=== PATIENT | female | born 2000 | race American Indian/Alaskan Native ===

== ENCOUNTER 2022-02-20 11:14 | Emergency (ER) | payer MEDICAID ==
--- NOTE | 2022-02-20 14:26 | Emergency Department Report ---
ED Female HPI - General Chief complaint: Urogenital-Female Stated complaint: VAGINAL DISCHARGE Source: patient Mode of arrival: Ambulatory Limitations: No Limitations - History of Present Illness Initial comments: 21-year-old female presents to the ED complaining of vaginal discharge x2 days. Patient states that she had was diagnosed with trichomonas on February 16 and was given Flagyl and Diflucan. She states that symptom has not resolved and she continue to have unprotected sex with the same sexual partner. Patient states painful to have sexual intercourse. Patient complain of dysuria at present time. Patient states that she has an appointment with [facility] this week but due to the vaginal discharge she decided to come to the ED. patient is alert and oriented x3. No acute distress noted. No ill appearance noted. Patient denies any fever, chills or shortness of breath. MD Complaint: vaginal discharge Onset/Timin -: Gradual Severity scale (0 -10): 5 Consistency: intermittent Improves with: none - Related Data Home Medications Medication Instructions Recorded Confirmed Last Taken Divalproex Dr [DepaKOTE DR] 500 mg PO BID 09/11/18 09/11/18 Unknown FLUoxetine HCL [Fluoxetine HCl] 20 mg PO DAILY 09/11/18 09/11/18 Unknown Norgestimate-Ethinyl Estradiol 0.25 mg PO DAILY 09/11/18 09/11/18 Unknown [Previfem Tablet] traZODone [Desyrel] 100 mg PO QHS 09/11/18 09/11/18 Unknown valACYclovir [Valtrex] 500 mg PO DAILY 09/11/18 09/11/18 Unknown Previous Rx's Medication Instructions Recorded Last Taken Type DOXYCYCLINE Hyclate [Vibramycin 100 mg PO Q12HR 10 Days #20 capsule 02/20/22 Unknown Rx CAP] Terconazole [Terazol 7 Vag Cream] 1 applicator VG QHS 5 Days #1 02/20/22 Unknown Rx applicator metroNIDAZOLE [Flagyl TAB] 500 mg PO Q12HR 7 Days #14 tab 02/20/22 Unknown Rx Allergies Allergy/AdvReac Type Severity Reaction Status Date / Time No Known Allergies Allergy Verified 09/11/18 21:57 ED Review of Systems ROS: Stated complaint: VAGINAL DISCHARGE Other details as noted in HPI Constitutional: denies: chills, fever Eyes: denies: eye pain, eye discharge, vision change ENT: denies: ear pain, throat pain Respiratory: denies: cough, shortness of breath, wheezing Cardiovascular: denies: chest pain, palpitations Endocrine: no symptoms reported Gastrointestinal: denies: abdominal pain, nausea, diarrhea Genitourinary: denies: urgency, dysuria, discharge Musculoskeletal: denies: back pain, joint swelling, arthralgia Skin: denies: rash, lesions Neurological: denies: headache, weakness, paresthesias Psychiatric: denies: anxiety, depression Hematological/Lymphatic: denies: easy bleeding, easy bruising ED Past Medical Hx - Past Medical History Previous Medical History?: Yes Hx Psychiatric Treatment: Yes (depression) Additional medical history: Herpes, Vaginal discharge - Surgical History Past Surgical History?: No - Social History Smoking Status: Never Smoker - Medications Home Medications: Home Medications Medication Instructions Recorded Confirmed Last Taken Type Divalproex Dr [DepaKOTE DR] 500 mg PO BID 09/11/18 09/11/18 Unknown History FLUoxetine HCL [Fluoxetine HCl] 20 mg PO DAILY 09/11/18 09/11/18 Unknown History Norgestimate-Ethinyl Estradiol 0.25 mg PO DAILY 09/11/18 09/11/18 Unknown History [Previfem Tablet] traZODone [Desyrel] 100 mg PO QHS 09/11/18 09/11/18 Unknown History valACYclovir [Valtrex] 500 mg PO DAILY 09/11/18 09/11/18 Unknown History DOXYCYCLINE Hyclate [Vibramycin 100 mg PO Q12HR 10 Days #20 capsule 02/20/22 Unknown Rx CAP] Terconazole [Terazol 7 Vag Cream] 1 applicator VG QHS 5 Days #1 02/20/22 Unknown Rx applicator metroNIDAZOLE [Flagyl TAB] 500 mg PO Q12HR 7 Days #14 tab 02/20/22 Unknown Rx ED Physical Exam - General Limitations: No Limitations General appearance: alert, in no apparent distress - Head Head exam: Present: atraumatic, normocephalic - Eye Eye exam: Present: normal appearance - ENT ENT exam: Present: mucous membranes moist - Neck Neck exam: Present: normal inspection - Respiratory Respiratory exam: Present: normal lung sounds bilaterally. Absent: respiratory distress - Cardiovascular Cardiovascular Exam: Present: regular rate, normal rhythm. Absent: systolic murmur, diastolic murmur, rubs, gallop - GI/Abdominal GI/Abdominal exam: Present: soft, normal bowel sounds - Speculum exam: Present: vaginal discharge Bi-manual exam: Present: normal bi-manual exam. Absent: cervical motion tendernes - Extremities Exam Extremities exam: Present: normal inspection - Back Exam Back exam: Present: normal inspection - Neurological Exam Neurological exam: Present: alert, oriented X3 - Psychiatric Psychiatric exam: Present: normal affect, normal mood - Skin Skin exam: Present: warm, dry, intact, normal color. Absent: rash ED Course Vital Signs 02/20/22 02/20/22 11:28 15:47 Temperature 98.0 F 98.7 F Pulse Rate 91 H 77 Respiratory 18 18 Rate Blood Pressure 134/67 Blood Pressure 136/80 [Right] O2 Sat by Pulse 100 99 Oximetry ED Medical Decision Making - Medical Decision Making 21-year-old female presents to the ED complaining of vaginal discharge x2 days. Patient states that she had was diagnosed with trichomonas on February 16 and was given Flagyl and Diflucan. She states that symptom has not resolved and she continue to have unprotected sex with the same sexual partner. Patient states painful to have sexual intercourse. Patient complain of dysuria at present time. Patient states that she has an appointment with [facility] this week but due to the vaginal discharge she decided to come to the ED. patient is alert and oriented x3. No acute distress noted. No ill appearance noted. Patient denies any fever, chills or shortness of breath. Physical examination patient has copious amount of white vaginal discharge on pelvic examination. Empirically treat patient for gonorrhea chlamydia. Wet prep shows trichomonas and bacterial vaginosis. Patient to keep appointment at [facility]. Rechecked the patient is resting quietly quietly and comfortable and feeling better. I discussed the results of diagnostic study, my clinical impression and the plan for further treatment with the patient. Patient agrees with plan and discharge at this present time. All question addressed. I have given the patient instruction regarding a diagnosis ,expectation ,follow- up and return precaution. I explained to the patient that emergent condition may arise and to return to the ED for new worsen and any new persisting condition. I have explained the importance of following up with the primary care physician or referral physician listed below has instructed. The patient verbalized understanding of discharge instruction. Abnormal Lab Results 02/20/22 14:11 Urine Color Yellow Urine Turbidity Clear Urine pH 6.0 Ur Specific [facility] 1.019 Urine Protein <15 mg/dl Urine Glucose (UA) Neg Urine Ketones Neg Urine Blood Neg Urine Nitrite Neg Urine Bilirubin Neg Urine Urobilinogen < 2.0 Ur Leukocyte Esterase Mod Urine WBC (Auto) 2.0 Urine RBC (Auto) 1.0 U Epithel Cells (Auto) 14.0 H Urine Mucus Few Urine HCG, Qual Negative Critical care attestation.: If time is entered above; I have spent that time in minutes in the direct care of this critically ill patient, excluding procedure time. ED Disposition Clinical Impression: Bacterial vaginosis, Trichomonas infection Disposition: HOME / SELF CARE / HOMELESS Is pt being admited?: No Does the pt Need Aspirin: No Condition: Stable Instructions: Bacterial Vaginosis, [id number], Trichomoniasis, Safe Sex, Bacterial Vaginosis (ED) Additional Instructions: Follow-up with [facility] as previous schedule Practice safe sex Return to the ED for any worsening symptom Prescriptions: Terconazole [Terazol 7 Vag Cream] 1 applicator VG QHS 5 Days #1 applicator metroNIDAZOLE [Flagyl TAB] 500 mg PO Q12HR 7 Days #14 tab DOXYCYCLINE Hyclate [Vibramycin CAP] 100 mg PO Q12HR 10 Days #20 capsule Referrals: PRIMARY CARE, [Primary Care Provider] - 3-5 Days [facility] [Provider Group] - 3-5 Days Forms: STI Treatment and Prevention, Work/School Release Form Time of Disposition: 15:29
[2022-02-20 14:40] LABS: Bilirubin,Urine NEG (Negative); Blood,Urine NEG (Negative); Color,Urine Yellow (Yellow); Mucus,Urine FEW /HPF; Protein,Urine <15 mg/dL mg/dL (Negative); Urobilinogen,Urine < 2.0 mg/dL (<2.0)
[2022-02-20 14:48] LABS: HCG Qualitative,Urine Negative (Negative)
[2022-02-20] MEDS ORDERED: LIDOCAINE-MPF (1%) 10 MG/1 ML VIAL 5 ML INFILTRATI ONE (15:20)
[2022-02-20 15:48] VITALS: BP 136/80
== END 2022-02-20 15:47 | disposition home or self-care (01) ==
LOC: ED 11:14
DX: N76.0 Acute vaginitis (principal); B96.89 Other specified bacterial agents as the cause of diseases classified elsewhere; A59.9 Trichomoniasis, unspecified; F32.A Depression, unspecified
CPT/HCPCS: 81001; 81025; 87210; 96372; 99283; J0696; J3490